=== PATIENT | male | born 1980 | race Caucasian/White ===

== ENCOUNTER 2024-03-22 23:18 | Emergency (ER) | payer OTHER, SELFPAY ==
[2024-03-22 23:22] VITALS: BP 122/74; PULSE 104; RESP 16; TEMP 36.4; O2SAT 95; BMI 32.5
--- OUTSIDE RECORDS SUMMARY | 2024-03-22 23:54 | XMS_ITS | Clinical Summary ---
Author Organization [facility] Address [address] [place] [address] Care Team Providers Care Cook Helper Name Role Phone Rosendo Roland MD Primary Care Provider [phone] Allergies No known active allergies Medications No known medications Social History Tobacco Use Types Packs/Day Years Used Date Smoking Tobacco: Never Smokeless Tobacco: Never Alcohol Use Standard Drinks/Week Comments Yes 0 (1 standard drink = 0.6 oz pur e alcohol) Adolescent Education Answer Date Record ed Getting School Help Needed Not on file 11/24 Sex and Gender Information Value Date Recorded Sex Assigned at Not on file Legal Sex Male 6:46 PM CDT Gender Identity Not on file Sexual Orientation Not on file Last Filed Vital Signs Vital Sign Reading Time Taken Comments Blood Pressure 122/89 09/26/2022 12:57 AM CDT Pulse 66 09/26/2022 12:57 AM CDT Temperature 36.6 C (97.9 F) 09/25/2022 11:21 PM CDT Respiratory Rate 18 09/25/2022 11:21 PM CDT Oxygen Saturation 100% 09/26/2022 12:58 AM CDT Inhaled Oxygen Concentration - - Weight 110.7 kg (244 lb) 09/25/2022 6:58 PM CDT Height - - Body Mass Index - - Plan of Treatment Health Maintenance Due Date Last Done Comments ADVANCE CARE PLANNING 1982 ANNUAL REVIEW OF HM ORDERS 1982 YEARLY PREVENTIVE VISIT 1985 HIV SCREENING 1997 HEPATITIS C SCREENING 2000 HEPATITIS B IMMUNIZATION (1 of 3 - 19+ 3-dose series) 2001 DTAP/TDAP/TD IMMUNIZATION (1 - Tdap) 06/21/2007 LIPID 2022 COVID-19 Vaccine (1 - 2023-2 5 season) 2023 INFLUENZA VACCINE (#1) 2023 PHQ-2 (once per calendar year) 2024 GLUCOSE 09/25/2025 09/25/2022 RSV VACCINE (1 - 1-dose 75+ series) 2057 HPV IMMUNIZATION Aged Out No longer e ligible based on patient's age to complete this topic MENINGITIS IMMUNIZATION Aged Out No l onger eligible based on patient's age to complete this topic Pneumococcal Vaccine: Pediat rics (0 to 5 Years) and At-Risk Patients (6 to 49 Years) Aged Out No longer eligi ble based on patient's age to complete this topic RSV MONOCLONAL ANTIBODY Aged Out No l onger eligible based on patient's age to complete this topic Procedures Procedure Name Priority Date/Time Associated Diagnosis Comments BASIC METABOLIC PANEL STAT 09/25/2022 9:28 PM CDT from Last 3 Months or Most Recently Relevant to Health Maintenance Results * (ABNORMAL) Basic metabolic panel (09/25/2022 9:28 PM CDT) Sodium 137 136 - 145 mmol/L 09/25/2022 9:56 PM CDT [facility] Potassium 4.2 3.4 - 5.3 mmol/L 09/25/2022 9:56 PM CDT [facility] Chloride 100 98 - 107 mmol/L 09/25/2022 9:56 PM CDT [facility] Carbon Dioxide (CO2) 27 22 - 29 mmol/L 09/25/2022 9:56 PM CDT [facility] Anion Gap 10 7 - 15 mmol/L 09/25/2022 9:56 PM CDT [facility] Urea Nitrogen 13.1 6.0 - 20.0 mg/dL 09/25/2022 9:56 PM CDT [facility] Creatinine 1.08 0.67 - 1.17 mg/dL 09/25/2022 9:56 PM CDT [facility] Calcium 9.8 8.6 - 10.0 mg/dL 09/25/2022 9:56 PM CDT [facility] Glucose 107(H) 70 - 99 mg/dL 09/25/2022 9:56 PM CDT [facility] GFR Estimate 89 >60 mL/min/1.7 3m2 09/25/2022 9:56 PM CDT [facility] Blood BLOOD SPECIMEN / Unknown Venipuncture / Unknown 09/25/2022 9:28 PM CDT 09/25/2022 9:34 PM CDT us Andres Sherman MD LAB - BLOOD ORDERABLES Final Result [facility] [address] Lab (1st floor, no room number) [place] [address], [facility] [phone] from Last 3 Months or Most Recently Relevant to Health Maintenance Insurance [facility] Care Teams Cook Helper Relationship Specialty Start Date End Date Rosendo Roland MD [facility] [address] [place] [address] PCP - General 09/25/22
[2024-03-22] MEDS: LIDOCAINE 1%-EPI 1:100,000 20 ML INFILTRATI (23:55)
--- OUTSIDE RECORDS SUMMARY | 2024-03-22 23:55 | XMS_ITS | Encounter Summary ---
Author Organization [facility] Address [address], [place] [address] Care Team Providers Care Installer Technician Name Role Phone Rosendo Roland MD Primary Care Provider [phone] Reason for Visit * Procedure/Equipment (Routine) - Incomplete Specialty Diagnoses / Procedures Referred By Contac t Referred To Contact Diagnoses Chronic pain of left knee Procedures XR Knee Rt 1-2 [place] [address] [place] [address] Referral ID Status Reason Start Date Expiration Date V isits Requested Visits Authorized [id number] Incomplete 02/07/2024 05/08/2025 1 1 Encounter Details Date Type Department Care Team (Latest Contact Info) Description 02/07/2024 12:40 PM BRASS PICKLER Ancillary Procedure Desi [facility] [place] [address] Radiology [address] [place] [phone] [place] [address] [place] [address] Chronic pain of left knee Social History Tobacco Use Types Packs/Day Years Used Date Smoking Tobacco: Never Smokeless Tobacco: Never Alcohol Use Standard Drinks/Week Comments Yes 0 (1 standard drink = 0.6 oz pur e alcohol) PHQ-2 Answer Date Recorded PHQ-2 Score 2 06/18/2023 Sex and Gender Information Value Date Recorded Sex Assigned at Not on file Gender Identity Not on file Sexual Orientation Not on file documented as of this encounter Plan of Treatment Upcoming Encounters Date Type Department Care Team (Late st Contact Info) Description 04/03/2024 12:45 PM BRASS PICKLER Appointment [facility] [address] [facility] [place] [address] [place] [address] [address] [place] [address] documented as of this encounter Procedures Procedure Name Priority Date/Time Associated Diagnosis Comments XR KNEE RT 1-2 VIEWS COMPARISON Routine 02/07/2024 12:43 PM BRASS PICKLER Chronic pain of left knee documented in this encounter Results * XR Knee Lt 3 Views (02/07/2024 12:43 PM BRASS PICKLER) Anatomical Region Laterality Modality Lower Extremity, Knee Digital Ra diography 02/07/2024 12:3 5 PM BRASS PICKLER Narrative 02/07/2024 1:42 PM BRASS PICKLER COMPARISON: None. FINDINGS: No evidence of acute fracture or dislocation. Joint spaces within normal limits. No significant left knee joint effusion. Procedure Note Manny Moulton MD - 02/07/2024 COMPARISON: None. FINDINGS: No evidence of acute fracture or dislocation. Joint spaceswithin normal limits. No significant left knee joint effusion. Morgan AGUIRRE GD * XR Knee Rt 1-2 Views Comparison (02/07/2024 12:43 PM BRASS PICKLER) Anatomical Region Laterality Modality Lower Extremity, Knee Digital Ra diography 02/07/2024 12:3 5 PM BRASS PICKLER Narrative 02/07/2024 1:42 PM BRASS PICKLER COMPARISON: None. FINDINGS: No evidence of acute fracture or dislocation. Joint spaces within normal limits. No significant left knee joint effusion. Procedure Note Manny Moulton MD - 02/07/2024 COMPARISON: None. FINDINGS: No evidence of acute fracture or dislocation. Joint spaceswithin normal limits. No significant left knee joint effusion. Morgan Zapata MD RAD GD documented in this encounter Visit Diagnoses Diagnosis Chronic pain of left knee Pain in joint, lower leg Chronic pain of left knee Pain in joint, lower leg documented in this encounter Care Teams Installer Technician Relationship Specialty [place] [address] [place] [address] PCP - General Family Practice 10/25/21 documented as of this encounter
--- OUTSIDE RECORDS SUMMARY | 2024-03-22 23:55 | XMS_ITS | Encounter Summary ---
Author Organization [facility] Address [address] [place] [address] Care Team Providers Care Axminster Weaver Name Role Phone Rosendo Roland MD Primary Care Provider [phone] Reason for Visit * Procedure/Equipment (Routine) - Incomplete Specialty Diagnoses / Procedures Referred By Contac t Referred To Contact Diagnoses Chronic pain of left knee Procedures MR Knee Lt WO IV Cont MR [place] [address] [place] [address] Referral ID Status Reason Start Date Expiration Date V isits Requested Visits Authorized [id number] Incomplete 02/07/2024 05/08/2025 1 1 Encounter Details Date Type Department Care Team (Latest Contact Info) Description 02/07/2024 4:00 PM FLASK FITTER Ancillary Procedure [facility] [address] [place] [address] [place] [address] [place] [address] Chronic pain of left knee [...] st Contact Info) Description 04/03/2024 12:45 PM FLASK FITTER Appointment [facility] [address] [place] [address] [place] [address] [place] [address] documented as of this encounter Procedures Procedure Name Priority Date/Time Associated Diagnosis Comments MR KNEE LT WO IV CONT Routine 02/07/2024 4:28 PM FLASK FITTER Chronic pain of left knee documented in this encounter Results * MR Knee Lt WO IV Cont (02/07/2024 4:28 PM FLASK FITTER) Anatomical Region Laterality Modality Lower Extremity, Knee, Skeletal, Thigh, Leg, MSK Left Magnetic Resonance 02/07/2024 4:04 PM FLASK FITTER Impressions 02/09/2024 12:57 PM FLASK FITTER 1. No acute internal derangement in the left knee. 2. 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 3. 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 Narrative 02/09/2024 12:57 PM FLASK FITTER COMPARISON: Left knee x-rays 02/07/2024 TECHNIQUE: Routine MRI of the left knee was performed without contrast. FINDINGS: MEDIAL COMPARTMENT: There are no focal cartilage defects. The medial meniscus is normal without evidence of tear. LATERAL COMPARTMENT: Heterogeneity and superficial fissuring of the articular cartilage over the central weightbearing surface of the lateral femoral condyle in the opposing tibial plateau. No focal cartilage defect. The lateral meniscus is normal without evidence of tear. PATELLOFEMORAL JOINT: Diffuse heterogeneity and fissuring of the lateral trochlear cartilage with 5 mm full-thickness chondral defect over the lateral trochlear facet and underlying subchondral marrow edema (series 4 image 19 and series 3 image 11). Heterogeneity of the patellar articular cartilage without focal defect. No significant joint effusion. Dauvs-nh-mpjddoad popliteal fossa cyst measuring 3.5 x 1.0 cm in axial dimension and 5.2 cm in craniocaudal extent. LIGAMENTS AND TENDONS: The anterior and posterior cruciate ligaments, medial collateral ligament, iliotibial band, fibular collateral ligament and biceps femoris tendons are intact. The popliteus muscle and tendons are normal. There is no evidence of injury to the posterolateral corner supporting structures. EXTENSOR MECHANISM: The quadriceps and patellar tendons are normal. The medial retinaculum, medial patellofemoral ligament, and lateral retinaculum are normal. MARROW AND SOFT TISSUES: There is no abnormal signal or evidence of soft tissue mass. Procedure Note Regulo Madison MD - 02/09/2024 COMPARISON: Left knee x-rays 02/07/2024 TECHNIQUE: Routine MRI of the left knee was performed without contrast. FINDINGS: MEDIAL COMPARTMENT: There are no focal cartilage defects. The medialmeniscus is normal without evidence of tear. LATERAL COMPARTMENT: Heterogeneity and superficial fissuring of thearticular cartilage over the central weightbearing surface of the lateralfemoral condyle in the opposing tibial plateau. No focal cartilage defect.The lateral meniscus is normal without evidence of tear. PATELLOFEMORAL JOINT: Diffuse heterogeneity and fissuring of the lateraltrochlear cartilage with 5 mm full-thickness chondral defect over thelateral trochlear facet and underlying subchondral marrow edema (series 4image 19 and series 3 image 11). Heterogeneity of the patellar articularcartilage without focal defect. No significant joint effusion.Vqaqk-sj-lbvizwms popliteal fossa cyst measuring 3.5 x 1.0 cm in axialdimension and 5.2 cm in craniocaudal extent. LIGAMENTS AND TENDONS: The anterior and posterior cruciate ligaments,medial collateral ligament, iliotibial band, fibular collateral ligamentand biceps femoris tendons are intact. The popliteus muscle and tendonsare normal. There is no evidence of injury to the posterolateral cornersupporting structures. EXTENSOR MECHANISM: The quadriceps and patellar tendons are normal. Themedial retinaculum, medial patellofemoral ligament, and lateralretinaculum are normal. MARROW AND SOFT TISSUES: There is no abnormal signal or evidence of softtissue mass. IMPRESSION 1. No acute internal derangement in the left knee. 2. Moderate trochlear chondromalacia with 5 mm full-thickness chondraldefect over the lateral trochlear facet. 3. 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 Morgan Zapata MD RAD MRI documented in this encounter Visit Diagnoses Diagnosis Chronic pain of left knee Pain in joint, lower leg documented in this encounter Care Teams Axminster Weaver Relationship Specialty [place] [address] [place] [address] PCP - General Family Practice 10/25/21 documented as of this encounter
--- OUTSIDE RECORDS SUMMARY | 2024-03-22 23:55 | XMS_ITS | Encounter Summary ---
Author Organization [facility] Address [address] [address] Care Team Providers Care Supply Requirements Officer Name Role Phone Rosendo Roland MD Primary Care Provider [phone] Reason for Visit * Procedure/Equipment (Routine) - Incomplete Specialty Diagnoses / Procedures Referred By Contac t Referred To Contact Diagnoses Chronic pain of left knee Procedures XR Knee Lt 3 [place] [address] [place] [address] Referral ID Status Reason Start Date Expiration Date V isits Requested Visits Authorized [id number] Incomplete 02/07/2024 05/08/2025 1 1 Encounter Details Date Type Department Care Team (Latest Contact Info) Description 02/07/2024 12:35 PM SPECIALIZED LANGUAGE INSTRUCTOR Ancillary Procedure [facility] [place] [address] Radiology [address] [place] [phone] [place] [address] [place] [id number] Chronic pain of left knee Social History [...] st Contact Info) Description 04/03/2024 12:45 PM SPECIALIZED LANGUAGE INSTRUCTOR Appointment [facility] [address] [place] [phone] [place] [address] [place] [address] documented as of this encounter Procedures Procedure Name Priority Date/Time Associated Diagnosis Comments XR KNEE LT 3 VIEWS Routine 02/07/2024 12 :43 PM SPECIALIZED LANGUAGE INSTRUCTOR Chronic pain of left knee documented in this encounter Results * XR Knee Lt 3 Views (02/07/2024 12:43 PM SPECIALIZED LANGUAGE INSTRUCTOR) Anatomical Region Laterality Modality Lower Extremity, Knee Digital Ra diography 02/07/2024 12:3 5 PM SPECIALIZED LANGUAGE INSTRUCTOR Narrative 02/07/2024 1:42 PM SPECIALIZED LANGUAGE INSTRUCTOR COMPARISON: None. FINDINGS: No evidence of acute fracture or dislocation. Joint spaces within normal limits. No significant left knee joint effusion. Procedure Note Manny Moulton MD - 02/07/2024 COMPARISON: None. FINDINGS: No evidence of acute fracture or dislocation. Joint spaceswithin normal limits. No significant left knee joint effusion. Morgan AGUIRRE GD * XR Knee Rt 1-2 Views Comparison (02/07/2024 12:43 PM SPECIALIZED LANGUAGE INSTRUCTOR) Anatomical Region Laterality Modality Lower Extremity, Knee Digital Ra diography 02/07/2024 12:3 5 PM SPECIALIZED LANGUAGE INSTRUCTOR Narrative 02/07/2024 1:42 PM SPECIALIZED LANGUAGE INSTRUCTOR COMPARISON: None. FINDINGS: No evidence of acute [...] leg documented in this encounter Care Teams Supply Requirements Officer Relationship Specialty [place] [address] [place] [address] PCP - General Family Practice 10/25/21 documented as of this encounter
--- OUTSIDE RECORDS SUMMARY | 2024-03-22 23:55 | XMS_ITS | Clinical Summary ---
Author Organization [facility] Address [address], [place] [address] Care Team Providers Care Foreign Language Professor Name Role Phone Rosendo Roland MD Primary Care Provider [phone] Source Comments You are receiving this document as you are listed as the primary care provider,follow-up provider, or the patient has been referred to you for consultation.This is in compliance with the Medicare and[facility] EHR Incentive Program,which states Providers who transition their patient to another setting of careor provider of care or refers their patient to another provider of care shouldprovide summary care record for each transition of care or referral. [facility] Allergies No known active allergies Medications Medication Sig Dispensed Refills Start Date End Date Status vilazodone (VIIBRYD) 20 MG tablet Take 1 Tablet (20 mg) by mouth daily. 10/19/2023 Active Active Problems Problem Noted Date Diagnosed Date Obesity, Class I, BMI 30-34.9 09/07/2022 Encounters Date Type Department Care Team Description 02/19/2024 11:00 AM PLUMBING DRAFTER Office Visit [facility] [address] [place] [phone] Morgan Zapata MD Chronic pain of left knee (Primary Dx); Patellofemoral arthritis 02/18/2024 11:00 AM PLUMBING DRAFTER Office Visit [facility] [address] [facility] [address] [place] [address] Jocelyne Ball MD Sore throat; Pharyngitis, unspecified etiology 02/07/2024 4:00 PM PLUMBING DRAFTER Ancillary Procedure [facility] [place] [address] [place] [address] Morgan Zapata MD Chronic pain of left knee 02/07/2024 12:40 PM PLUMBING DRAFTER Ancillary Procedure Desi Sandoval [place] [address] Rad[facility] [address] [place] [address] Morgan Zapata MD Chronic pain of left knee 02/07/2024 12:35 PM PLUMBING DRAFTER Ancillary Procedure Desi Sandoval [place] [address] Radiology [address] [place] [address] Morgan Zapata MD Chronic pain of left knee 02/07/2024 12:30 PM PLUMBING DRAFTER Office Visit [facility] [address] [place] [address] Morgan Zapata MD Chronic pain of left knee (Primary Dx) from Last 3 Months Immunizations Name Administration Dates Next Due Influenza (Flucelvax), Preserv Free QIV 01/18/20 Moderna COVID-19 12+ 01/17/2023 Family History Medical History Relation Name Comments Diabetes, Type II Mother Relation Name Status Comments Mother Social History Tobacco Use Types Packs/Day Years Used Date Smoking Tobacco: Never Smokeless Tobacco: Never Tobacco Cessation:Counseling Given: Not Answered Alcohol Use Standard Drinks/Week Comments Yes 0 (1 standard drink = 0.6 oz pur e alcohol) PHQ-2 Answer Date Recorded PHQ-2 Score 2 06/18/2023 Sex and Gender Information Value Date Recorded Sex Assigned at Not on file Gender Identity Not on file Sexual Orientation Not on file Last Filed Vital Signs Vital Sign Reading Time Taken Comments Blood Pressure 110/76 02/18/2024 10:40 AM PLUMBING DRAFTER Pulse 89 02/18/2024 10:40 AM PLUMBING DRAFTER Temperature 37.7 C (99.8 F) 02/18/2024 10:40 AM PLUMBING DRAFTER Respiratory Rate 16 02/18/2024 10:40 AM PLUMBING DRAFTER Oxygen Saturation 97% 02/18/2024 10:40 AM PLUMBING DRAFTER Inhaled Oxygen Concentration - - Weight 108.9 kg (240 lb) 02/07/2024 12:30 PM PLUMBING DRAFTER Height 182.9 cm (6') 02/07/2024 12:30 PM PLUMBING DRAFTER Body Mass Index 32.55 02/07/2024 12:30 PM PLUMBING DRAFTER Plan of Treatment Upcoming Encounters Date Type Department Care Team (Late st Contact Info) Description 04/03/2024 12:45 PM PLUMBING DRAFTER Appointment [facility] [address] [place] [address] [place] [address] [place] [address] Health Maintenance Due Date Last Done Comments Diabetes Screening- (based o n age and BMI) 1982 Hep C Screening (Preventive Services) 1982 HIV Screening (Preventive Services) 1998 Adult Preventive Visit 2000 DTaP/Tdap/Td (1 - Tdap) 2001 HepB (1) 2001 Cholesterol 2017 Zoster/Shingles (1 of 2) 2032 COVID-19 Vaccine Completed 12/04/2023, 01/17/2023 Influenza Completed 12/04/2023, 01/17/2023 HPV Vaccine Aged Out No longer eligi ble based on patient's age to complete this topic HepA Aged Out No longer eligi ble based on patient's age to complete this topic Hib Aged Out No longer eligi ble based on patient's age to complete this topic IPV (Polio) Aged Out No longer eligi ble based on patient's age to complete this topic MCV4 Aged Out No longer eligi ble based on patient's age to complete this topic Pneumococcal Aged Out No longer eligi ble based on patient's age to complete this topic Procedures Procedure Name Priority Date/Time Associated Diagnosis Comments STREP GROUP A, MOLECULAR DETECTION STAT 02/18/2024 10:41 AM PLUMBING DRAFTER Sore throat MR KNEE LT WO IV CONT Routine 02/07/2024 4:28 PM PLUMBING DRAFTER Chronic pain of left knee XR KNEE LT 3 VIEWS Routine 02/07/2024 12 :43 PM PLUMBING DRAFTER Chronic pain of left knee XR KNEE RT 1-2 VIEWS COMPARISON Routine 02/07/2024 12:43 PM PLUMBING DRAFTER Chronic pain of left knee from Last 3 Months Results * STREP GROUP A, Molecular Detection-Collect Now in current encounter (02/18/2024 10:41 AM PLUMBING DRAFTER) Group A Strep Not Detected Not Detected 024 11:23 AM PLUMBING DRAFTER [facility] Comment:Methodology: Qualita tive real-time PCR assay Swab (Source Required) THROAT SWAB / Unknown Non-blood Collection / Unknown 02/18/2024 10:41 AM PLUMBING DRAFTER 02/18/2024 10:49 AM PLUMBING DRAFTER Jhon K Rich [facility] [address] [place] [address] * MR Knee Lt WO IV Cont (02/07/2024 4:28 PM PLUMBING DRAFTER) Anatomical Region Laterality Modality Lower Extremity, Knee, Skeletal, Thigh, Leg, MSK Left Magnetic Resonance 02/07/2024 4:04 PM PLUMBING DRAFTER Impressions 02/09/2024 12:57 PM PLUMBING DRAFTER 1. No acute internal derangement in the left knee. 2. 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 3. 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 Narrative 02/09/2024 12:57 PM PLUMBING DRAFTER COMPARISON: Left knee x-rays 02/07/2024 TECHNIQUE: Routine [...] without focal defect. No significant joint effusion. Knwsy-lq-fqstogce popliteal fossa cyst measuring 3.5 x 1.0 [...] articularcartilage without focal defect. No significant joint effusion.Wlzsx-va-ngsvtyzr popliteal fossa cyst measuring 3.5 x 1.0 [...] Desai cyst. Morgan Zapata MD RAD MRI * XR Knee Lt 3 Views (02/07/2024 12:43 PM PLUMBING DRAFTER) Anatomical Region Laterality Modality Lower Extremity, Knee Digital Ra diography 02/07/2024 12:3 5 PM PLUMBING DRAFTER Narrative 02/07/2024 1:42 PM PLUMBING DRAFTER COMPARISON: None. FINDINGS: No evidence of acute fracture or dislocation. Joint spaces within normal limits. No significant left knee joint effusion. Procedure Note Manny Moulton MD - 02/07/2024 COMPARISON: None. FINDINGS: No evidence of acute fracture or dislocation. Joint spaceswithin normal limits. No significant left knee joint effusion. Morgan Zapata MD RAD GD * XR Knee Rt 1-2 Views Comparison (02/07/2024 12:43 PM PLUMBING DRAFTER) Anatomical Region Laterality Modality Lower Extremity, Knee Digital Ra diography 02/07/2024 12:3 5 PM PLUMBING DRAFTER Narrative 02/07/2024 1:42 PM PLUMBING DRAFTER COMPARISON: None. FINDINGS: No evidence of acute fracture or dislocation. Joint spaces within normal limits. No significant left knee joint effusion. Procedure Note Manny Moulton MD - 02/07/2024 COMPARISON: None. FINDINGS: No evidence of acute fracture or dislocation. Joint spaceswithin normal limits. No significant left knee joint effusion. Morgan Zapata MD RAD GD from Last 3 Months Care Teams Foreign Language Professor Relationship Specialty [place] [address] [place] [address] PCP - General Family Practice 10/25/21
--- OUTSIDE RECORDS SUMMARY | 2024-03-22 23:55 | XMS_ITS | Referral Summary ---
Author Organization [facility] Address [address] [place] [address] Care Team Providers Care Twister Tender Name Role Phone Rosendo Roland MD Primary Care Provider [phone] Allergies No known active allergies Medications No [...] Mass Index - - Plan of Treatment Not on file Procedures Procedure Name Priority Date/Time Associated Diagnosis Comments BASIC METABOLIC PANEL STAT 09/25/2022 9:28 PM CDT from Last 3 Months or Most Recently Relevant to Health Maintenance Results * (ABNORMAL) Basic metabolic panel (09/25/2022 9:28 PM CDT) Sodium 137 136 - 145 mmol/L 09/25/2022 9:56 PM CDT LABORATORY Potassium 4.2 3.4 - 5.3 mmol/L 09/25/2022 9:56 PM CDT LABORATORY Chloride 100 98 - 107 mmol/L 09/25/2022 9:56 PM CDT LABORATORY Carbon Dioxide (CO2) 27 22 - 29 mmol/L 09/25/2022 9:56 PM CDT LABORATORY Anion Gap 10 7 - 15 mmol/L 09/25/2022 9:56 PM CDT LABORATORY Urea Nitrogen 13.1 6.0 - 20.0 mg/dL 09/25/2022 9:56 PM CDT LABORATORY Creatinine 1.08 0.67 - 1.17 mg/dL 09/25/2022 9:56 PM CDT LABORATORY Calcium 9.8 8.6 - 10.0 mg/dL 09/25/2022 9:56 PM CDT LABORATORY Glucose 107(H) 70 - 99 mg/dL 09/25/2022 9:56 PM CDT LABORATORY GFR Estimate 89 >60 mL/min/1.7 3m2 09/25/2022 9:56 PM CDT LABORATORY Blood BLOOD SPECIMEN / Unknown Venipuncture / Unknown 09/25/2022 9:28 PM CDT 09/25/2022 9:34 PM CDT us Andres Sherman MD LAB - BLOOD ORDERABLES Final Result LABORATORY [facility] [address] Lab (1st floor, no room number) [place] [address], [facility] [phone] from Last 3 Months or Most Recently Relevant to Health Maintenance Insurance [employer] Care Teams Twister Tender Relationship Specialty Start Date End Date Rosendo Roland MD [facility] [address] [place] [address] PCP - General 09/25/22
--- OUTSIDE RECORDS SUMMARY | 2024-03-22 23:55 | XMS_ITS | Encounter Summary ---
[facility] Organization [facility] Address [address] [place] [address] Care Team Providers Care Claim Attorney Name Role Phone Rosendo Roland MD Primary Care Provider [phone] Reason for Visit * Reason Comments Pharyngitis Encounter Details Date Type Department Care Team (Late st Contact Info) Description 02/18/2024 11:00 AM LOGISTICS CENTER MANAGER Office Visit [place] [facility] [address] [place] [address] Jocelyne Ball MD [address] [place], [place] [id number] Sore throat; Pharyngitis, unspecified etiology Social History Tobacco Use Types Packs/Day Years [...] on file documented as of this encounter Last Filed Vital Signs Vital Sign Reading Time Taken Comments Blood Pressure 110/76 02/18/2024 10:40 AM LOGISTICS CENTER MANAGER Pulse 89 02/18/2024 10:40 AM LOGISTICS CENTER MANAGER Temperature 37.7 C (99.8 F) 02/18/2024 10:40 AM LOGISTICS CENTER MANAGER Respiratory Rate 16 02/18/2024 10:40 AM LOGISTICS CENTER MANAGER Oxygen Saturation 97% 02/18/2024 10:40 AM LOGISTICS CENTER MANAGER Inhaled Oxygen Concentration - - Weight - - Height - - Body Mass Index - - documented in this encounter Patient Instructions * Patient Instructions* Jocelyne Ball MD - 02/18/2024 11:00 AM LOGISTICS CENTER MANAGER The strep test results will be called to you only if it is positive. If you are not already on an antibiotic it will be called to the pharmacy at that time. Push fluids, rest, Warm salt water gargles if that is helpful Lots of cold things to eat and drink Recheck right away if swallowing trouble, high fever, worsening symptoms If you do have strep and start an antibiotic expect some improvement in 24-48 hours Recheck if symptoms do not completely resolve after finishing the antibiotic Take Ibuprofen 600 mg every 6 hours and or tylenol 1000 mg every 6 hours as needed for pain/fever. May alternate so one or the other is every three hours. STICS CENTER MANAGER * Attachments The following attachments cannot be sent through Care Everywhere. * Sore Throat (Kyrgyz) documented in this encounter Progress Notes * Jocelyne Ball MD - 02/18/2024 11:00 AM CST [facility] Nursing Notes: Daphne Nation RN 02/18/24 1040 Signed Mike Culp is a 43 y.o.male presents to the Urgent Care for Pharyngitis Symptoms began: 4 day(s) ago and are are worsening. Pain Scale: 7/10 Fever: believed to be present, temp not taken. Associated symptoms: chills. Fluid intake is decreased. Exposure: no at no exposure . OTC remedies: multi-symptom cold medications. Relief of symptoms: mild. Patient requests an excuse letter for work/school: No Patient: Mike Culp Date of : 1980 (43 y.o.) Subjective Chief Complaint: Chief Complaint Patient presents with Pharyngitis History of Present Illness: Mike Culp is a 43 y.o.male who presents with sore throat for thelast 4 days. Assoc symptoms include: chills and sore throat. Does not have nasal congestion. has not been exposed to strep. has not beenexposed to mono. Objective Physical Exam: Vital Signs: BP 110/76 (BP Location: Right Arm, BP Cuff Size: Large) Pulse 89 Temp 37.7 ??C (99.8 ??F) (Tympanic) Resp 16 SpO2 97% NAD General: Patient does not appear acutely ill. Skin: Mucous membranes are moist. No sign of obvious dehydration. Ears: Canals normal without lesions. TMs: clear Pharynx: moderate erythema Neck: neck one slightly enlarged lymph node right posterior chain Respiratory: Normal respiratory effort. Lungs are clear with good breath sounds. Heart: RR without murmurs, rubs, or gallops. Laboratory Testing: Results for orders placed or performed in visit on 02/18/24 STREP GROUP A, Molecular Detection-Collect Now in current encounter Result Value Ref Range Group A Strep Not Detected Not Detected Interventions: Orders Placed This Encounter STREP GROUP A, Molecular Detection-Collect Now in current encounter Assessment MDM: he does not have nasal congestion so advised he stop using a multisymptom cold med as he does not need the decongestant and it may make the sore throat worse. Strep test pending but likely viral. Impression: 1. Sore throat 2. Pharyngitis, unspecified etiology Plan Patient Discharge Medications & Instructions: Medications Prescribed this Visit None Patient Instructions The strep test results will be called to you only if it is positive. If you are not already on an antibiotic it will be called to the pharmacy at that time. Push fluids, rest, Warm salt water gargles if that is helpful Lots of cold things to eat and drink Recheck right away if swallowing trouble, high fever, worsening symptoms If you do have strep and start an antibiotic expect some improvement in 24-48 hours Recheck if symptoms do not completely resolve after finishing the antibiotic Take Ibuprofen 600 mg every 6 hours and or tylenol 1000 mg every 6 hours as needed for pain/fever. May alternate so one or the other is every three hours. Jocelyne Ball MD STICS CENTER MANAGER documented in this encounter Nursing Notes * Daphne Nation RN - 02/18/2024 11:00 AM CST Mike Culp is a 43 y.o.male presents to the Urgent Care for Pharyngitis Symptoms began: 4 day(s) ago and are are worsening. Pain Scale: 7/10 Fever: believed to be present, temp not taken. Associated symptoms: chills. Fluid intake is decreased. Exposure: no at no exposure . OTC remedies: multi-symptom cold medications. Relief of symptoms: mild. Patient requests an excuse letter for work/school: No STICS CENTER MANAGER documented in this encounter Plan of Treatment Upcoming Encounters Date Type Department Care Team (Late st Contact Info) Description 04/03/2024 12:45 PM LOGISTICS CENTER MANAGER Appointment [facility] [address] [place] [address] [place] [address] [place] [address] documented as of this encounter Procedures Procedure Name Priority Date/Time Associated Diagnosis Comments STREP GROUP A, MOLECULAR DETECTION STAT 02/18/2024 10:41 AM LOGISTICS CENTER MANAGER Sore throat documented in this encounter Results * STREP GROUP A, Molecular Detection-Collect Now in current encounter (02/18/2024 10:41 AM LOGISTICS CENTER MANAGER) Group A Strep Not Detected Not Detected 024 11:23 AM LOGISTICS CENTER MANAGER [facility] Comment:Methodology: Qualita tive real-time PCR assay Swab (Source Required) THROAT SWAB / Unknown Non-blood Collection / Unknown 02/18/2024 10:41 AM LOGISTICS CENTER MANAGER 02/18/2024 10:49 AM LOGISTICS CENTER MANAGER [facility] [address] [place] [address], [facility] documented in this encounter Visit Diagnoses Diagnosis Sore throat Acute pharyngitis Pharyngitis, unspecified etiology documented in this encounter Care Teams Claim Attorney Relationship Specialty [place] [address] [place], [place] [phone] PCP - General Family Practice 10/25/21 documented as of this encounter
--- OUTSIDE RECORDS SUMMARY | 2024-03-22 23:55 | XMS_ITS | Encounter Summary ---
Author Organization [facility] Address [address] [place] [address] Care Team Providers Care Test Man Name Role Phone Rosendo Roland MD Primary Care Provider [phone] Reason for Referral * Procedure/Equipment (Routine) - Incomplete Specialty Diagnoses / Procedures Referred By Contac t Referred To Contact Diagnoses Chronic pain of left knee Procedures MR Knee Lt WO IV Cont [place] [address] [place] [address] Referral ID Status Reason Start Date Expiration Date V isits Requested Visits Authorized [id number] Incomplete 02/07/2024 05/08/2025 1 1 INJECTOR * Procedure/Equipment (Routine) - Incomplete Specialty Diagnoses / Procedures Referred By Contac t Referred To Contact Diagnoses Chronic pain of left knee Procedures XR Knee Rt 1-2 [place] [address] [place] [address] Referral ID Status Reason Start Date Expiration Date V isits Requested Visits Authorized [id number] Incomplete 02/07/2024 05/08/2025 1 1 INJECTOR * Procedure/Equipment (Routine) - Incomplete Specialty Diagnoses / Procedures Referred By Contac t Referred To Contact Diagnoses Chronic pain of left knee Procedures XR Knee Lt 3 [place] [address] [place] [address] Referral ID Status Reason Start Date Expiration Date V isits Requested Visits Authorized [id number] Incomplete 02/07/2024 05/08/2025 1 1 INJECTOR Reason for Visit * Reason Comments CONSULT Left knee chronic DO P: 20 plus years JUAN: originally injured hockey game Encounter Details Date Type Department Care Team (Late st Contact Info) Description 02/07/2024 12:30 PM MOLD INJECTOR Office Visit [facility] [address] [place] [address] [place] [address] [place] [address] Chronic pain of left knee (Primary Dx) Social History Tobacco Use Types Packs/Day Years [...] Sign Reading Time Taken Comments Blood Pressure - - Pulse - - Temperature - - Respiratory Rate - - Oxygen Saturation - - Inhaled Oxygen Concentration - - Weight 108.9 kg (240 lb) 02/07/2024 12:30 PM MOLD INJECTOR Height 182.9 cm (6') 02/07/2024 12:30 PM MOLD INJECTOR Body Mass Index 32.55 02/07/2024 12:30 PM MOLD INJECTOR documented in this encounter Patient Instructions * Patient Instructions* Ester Terry CMA - 02/07/2024 12:30 PM MOLD INJECTOR Thank you for being seen today at [facility] Orthopedics Your Diagnosis is: Left knee pain Your Recommended Treatment is: MRI scan Call below number after MRI complete to set up in person or over the phone clinic visit to review treatment plan and options Morgan Zapata MD Orthopaedic Surgery [phone] Advanced Imaging Scheduling: To schedule advanced imaging including MRI's, CT Scans, Ultrasounds and Fluoroscopic guided injections at a [facility] location please call [phone]. Medication Requests: Prescriptions are not filled on weekends or on weekdays after 3:00 PM. For all medication refills: Request a refill using MyChart or contact your pharmacy. [employer] [address] [place] [address] (Phone) Email: [email or web address] What is Know Your Cost? Know Your Cost is a service for patients and patient/members to call and receive personalized cost information and estimates across our care group. The phone number is (COST) Saturday - Saturday 8 AM to 5 PM Release of Information: Radiology/Imaging Health Information Management [address] [place] [address] [place] [address] (Phone) [phone] (Phone) [employer] INJECTOR documented in this encounter Progress Notes * Morgan Zapata MD - 02/07/2024 12:30 PM CST [facility] Orthopaedic Surgery and Sports Medicine Consultation Note 02/07/2024 NAME: Mike Culp CSN: [id number] Chief Complaint: Left Knee Pain Date of Injury: Over 20 years ago History of Present Illness: Mike Culp is a 43 y.o. male who presents for evaluation of left knee pain. He states he injured his left knee while playing hockey over 20 years ago. Since that time he has had pain and symptoms. The pain is mostly under the patella. He has tried physical therapy in the past. The patient reports he has had several left knee arthroscopic debridement surgeries. His last surgery was 10-15 years ago. He denies previous fracture or tearing of soft tissues. He wonders about possible maltracking of his patella. He was told there were bone spurs present. He notes quadriceps atrophy. He has modified his activities due to pain. He has frequent clicking and popping of his knee. He denies locking. He does develop swelling and Desai's cyst that has not been a problem for awhile.Over the past several months, the pain has increased in severity. He has constant knee pain and aching about the patella even at rest. He is not as active as he used to be. Allergies: Patient has no known allergies. Current Medications: The patient has a current medication list which includes the following prescription(s): bupropion, semaglutide-weight management, and vilazodone. Past Medical History: The patient has no past medical history on file. Past Surgical History: The patient has a past surgical history that includes vasectomy (08/04/22). Family History: The patient's family history includes Diabetes, Type II in his mother. 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 Non-smoker Socially drinks alcohol Physical Exam: General: The patient is alert, oriented in no acute distress. Neuro: Answers questions appropriately. Left Knee: Effusion: Trace Patellar tenderness: Some tenderness over the inferior patella Medial joint line: No tenderness Lateral joint line: No tenderness ROM: Extension: 0 degrees; Flexion: 135 degrees Patellar grind test: Negative Alexandrea: Grade 1A Varus and Valgus stress test, 0 and 30 degrees: Negative Luis Miguel's to varus and valgus load: Negative Imaging: Radiographs of the left knee - 3 views; right knee comparison (02/07/2024): FINDINGS: No evidence of acute fracture or dislocation. Joint spaces within normal limits. No significant left knee joint effusion. Dr. Zapata Impression: X-rays demonstrate mild patellofemoral arthritis with a small amount of spurring. No other fractures or deformities. I ordered and independently reviewed and interpreted the imaging studies above; the results were discussed with the patient. Assessment: ICD-10-CM 1. Chronic pain of left knee M25.562 XR Knee Lt 3 Views G89.29 XR Knee Rt 1-2 Views Comparison MR Knee Lt WO IV Cont CANCELED: MR Knee Lt WO IV Cont 43 y.o. male with acute on chronic left knee pain consistent with patellofemoral chondromalacia, possible meniscus tear. Plan: We will obtain an MRI scan of the left knee to further rule out the cartilage and meniscus problemsgiven the chronicity of symptoms and his lack of response long-term to previous surgeries, physicaltherapy, injections. Follow up with me either in person or over the phone after the MRI has been completed for further review. Scribe Disclosure: I, Moni Cruz, am serving as a scribe to document services personally performed by Morgan Zapata MD at this visit, based upon the provider's statements to me. All documentation has been reviewed by the aforementioned provider prior to being entered into the official medical record. Portions of this medical record were completed by a scribe. UPON MY REVIEW AND AUTHENTICATION BY ELECTRONIC SIGNATURE, this confirms (a) I performed the applicable clinical services, and (b) the record is accurate. Morgan Zapata MD INJECTOR documented in this encounter Plan of Treatment Upcoming Encounters Date Type Department Care Team (Late st Contact Info) Description 04/03/2024 12:45 PM MOLD INJECTOR Appointment [facility]ics [facility] Sports Medicine [address] [place] [phone] [place] [address] [place] [address] documented as of this encounter Results * MR Knee Lt WO IV Cont (02/07/2024 4:28 PM MOLD INJECTOR) Anatomical Region Laterality Modality Lower Extremity, Knee, Skeletal, Thigh, Leg, MSK Left Magnetic Resonance 02/07/2024 4:04 PM MOLD INJECTOR Impressions 02/09/2024 12:57 PM MOLD INJECTOR 1. No acute internal derangement in the left knee. 2. 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 3. 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 Narrative 02/09/2024 12:57 PM MOLD INJECTOR COMPARISON: Left knee x-rays 02/07/2024 TECHNIQUE: Routine [...] without focal defect. No significant joint effusion. [id number]-[id number]-dwrmnwna popliteal fossa cyst measuring 3.5 x 1.0 [...] articularcartilage without focal defect. No significant joint effusion.[id number]-qd-syehfebd popliteal fossa cyst measuring 3.5 x 1.0 [...] Knee Lt 3 Views (02/07/2024 12:43 PM MOLD INJECTOR) Anatomical Region Laterality Modality Lower Extremity, Knee Digital Ra diography 02/07/2024 12:3 5 PM MOLD INJECTOR Narrative 02/07/2024 1:42 PM MOLD INJECTOR COMPARISON: None. FINDINGS: No evidence of acute fracture or dislocation. Joint spaces within normal limits. No significant left knee joint effusion. Procedure Note Manny Moulton MD - 02/07/2024 COMPARISON: None. FINDINGS: No evidence of acute fracture or dislocation. Joint spaceswithin normal limits. No significant left knee joint effusion. Morgan Zapata MD RAD GD * XR Knee Rt 1-2 Views Comparison (02/07/2024 12:43 PM MOLD INJECTOR) Anatomical Region Laterality Modality Lower Extremity, Knee Digital Ra diography 02/07/2024 12:3 5 PM MOLD INJECTOR Narrative 02/07/2024 1:42 PM MOLD INJECTOR COMPARISON: None. FINDINGS: No evidence of acute [...] Visit Diagnoses Diagnosis Chronic pain of left knee- Primary Pain in joint, lower leg Chronic pain of left knee Pain in joint, lower leg Chronic pain of left knee Pain in joint, lower leg Chronic pain of left knee Pain in joint, lower leg documented in this encounter Care Teams Test Man Relationship Specialty [place] [address] [place] [address] PCP - General Family Practice 10/25/21 documented as of this encounter
--- OUTSIDE RECORDS SUMMARY | 2024-03-22 23:55 | XMS_ITS | Encounter Summary ---
Author Organization Formerly [facility] Address [address], [place] [address] Care Team Providers Care Pattern Finisher Name Role Phone Rosendo Roland MD Primary Care Provider [phone] Reason for Referral * (Routine) - New Request Specialty Diagnoses / Procedures Referred By Contac t Referred To Contact Diagnoses Chronic pain of left knee Procedures Triamcinolone Acet Inj Nos: (per 10 mg) [place] [address] [place] [address] Referral ID Status Reason Start Date Expiration Date V isits Requested Visits Authorized [id number] New Request 02/19/2024 05/20/2025 1 1 HICS COORDINATOR * Therapies (Routine) - New Request Specialty Diagnoses / Procedures Referred By Contac t Referred To Contact Diagnoses [place]of[place] [address] [place] [address] Referral ID Status Reason Start Date Expiration Date V isits Requested Visits Authorized [id number] New Request 02/19/2024 02/18/2025 1 1 Scheduling Instructions Your clinician has recommended an appointment with Physical Therapy and Rehabilitation Services. You can quickly schedule your appointment by signing in to your online account at [email or web address] or through the text message you may have received. You can also make an appointment by calling [phone]. We suggest you call your health insurance company about your coverage and benefits for this appointment. Question Answer Appointment Urgency? Non-Urgent Requested Services Evaluate and treat Reason for Visit General Physical Therapy May use saline for irrigation or cleansing Yes dexamethasone use Yes May check glucose per protocol (see policy link below) or if patient has symptoms? Yes Comments Left knee PF arthritis. Work on hip and core strengthening and PF program HICS COORDINATOR Reason for Visit * Reason Comments Follow-up Left knee MRI result s Encounter Details Date Type Department Care Team (Late st Contact Info) Description 02/19/2024 11:00 AM GRAPHICS COORDINATOR Office Visit [facility] [address] [place] [id number] [place] [address] [facility] [place] [address] Chronic pain of left knee (Primary Dx); Patellofemoral arthritis Social History Tobacco Use Types Packs/Day Years [...] on file documented as of this encounter Patient Instructions * Patient Instructions* Morgan Zapata MD - 02/19/2024 11:00 AM GRAPHICS COORDINATOR Thank you for being seen today at [facility] Your Diagnosis is: Left knee patellofemoral arthritis Your Recommended Treatment is: Injection today Start PT to work on hip, core and a patellofemoral program If not improving in 2-3 months, see me in clinic to determine further care INJECTION INSTRUCTIONS: You were provided an injection today. This has a mixture of short term numbing medication (lidocaine) and steroid (triamcinolone). This medication can take 3-5 days to note improvements in your pain and function. I recommend you rest the joint that you had injected for 1-2 days after the injection,to allow the joint to calm down and maximize the effect of the medication. After a 1-2 day period, you may gradually increase the use of the injured joint. You can remove the bandaid, shower and bathe normally after 2-4 hours from the injection. If you do not notice significant relief with modifying your activities, oral anti- inflammatories (ibuprofen or naproxen), and the injection, please follow-up with Dr. Zapata about 6 weeks after the injection for further review of treatment options. Morgan Zapata MD Orthopaedic Surgery [phone] HICS COORDINATOR documented in this encounter Progress Notes * Morgan Zapata MD - 02/19/2024 11:00 AM CST Ortho Follow-Up Note ID: 43-year-old male presents today for follow-up of left knee MRI scan results. Subjective: The patient denies changes since last being seen. He states his knee feels about the same. Continuing to have pain around the kneecap with occasional clicking. Objective: Alert, oriented, no acute distress Nonlabored breathing rest Exam left knee demonstrates motion from 0-135 degrees of flexion. Mild tenderness over the inferiorpatella. Further exam deferred Imaging: MRI scan of the left knee was reviewed today with the patient she demonstrates more diffuse moderate trochlear chondromalacia with more focal 5mm area of full- thickness chondral loss over the lateraltrochlear facet. There is also [id number] chondromalacia of the lateral tibial plateau. No meniscus or ligament tear Assessment: Left knee patellofemoral arthritis Plan: Corticosteroid injection Referral to physical therapy Follow up in 2-3 months if not improving. We discussed the options of hyaluronic acid or PRP injections as the next step. We discussed the option of a knee arthroscopy and chondroplasty if nonsurgical measures fail. We discussed that he may require partial or full knee replacement at some point in the future but he would be ideally greater than 50 with more significant arthritis at that time to consider TKA of PFKA After confirming injection site by patient and surgeon, the left knee was prepped with alcohol and chlorhexidine. 40mg of kenalog and 4cc f 1% lidocaine plain were injected into the left knee vis superolateral portal without complication. The patient tolerated the procedure well. The injection sitewas covered with a bandaid. Morgan Zapata MD HICS COORDINATOR documented in this encounter Plan of Treatment Upcoming Encounters Date Type Department Care Team (Late st Contact Info) Description 04/03/2024 12:45 PM GRAPHICS COORDINATOR [facility] [address] [place] [address] [place] [address] [place] [address] Scheduled Referrals Name Type Priority Associated Diagnoses Orde r Schedule Physical Therapy Referral Routine Patellofemoral arthritis Ordered: 02/19/2024 documented as of this encounter Visit Diagnoses Diagnosis Chronic pain of left knee- Primary Pain in joint, lower leg Patellofemoral arthritis Unspecified arthropathy, lower leg documented in this encounter Care Teams Pattern Finisher Relationship Specialty [place] [address] [place] [address] PCP - General Family Practice 10/25/21 documented as of this encounter
--- NOTE | 2024-03-23 01:55 | ED_ITS ---
HPI - Wound/Laceration General Date Seen: 03/23/24 Chief Complaint: Laceration/Wound Stated Complaint: Needs Stitches in lip, hockey puck Time Seen by Provider: 03/22/24 23:27 Source: patient Mode of arrival: ambulatory Limitations: no limitations History of Present Illness HPI narrative: This very nice gentleman with this plan hockey tonight, and older man's league , when he received a puck on the left side of his lip, this cut it, he has come in to get stitches, there is no loss of consciousness he did not lose any teeth, immunizations are up-to-date. This occurred approximately 60 minutes before being seen. Place: other Patient tetanus UTD: Yes Context: accidental Associated symptoms: none Treatments prior to arrival: cold therapy and bandage Related Data Home Medications ?Medication ?Instructions ?Recorded ?Confirmed No Known Home Medications 03/22/24 03/22/24 Allergies Allergy/AdvReac Type Severity Reaction Status Date / Time No Known Drug Allergies Allergy Verified 03/22/24 23:25 Review of Systems Status of ROS: Reports: 6 or more systems reviewed and unremarkable except as noted in History and below [facility] Social History Smoking Status: Unknown if ever smoked Exam Narrative: Exam Narrative: On examination of his left upper lip, there is approximately a 2 and half to 3 cm laceration that crosses the vermilion border and is gaping, it is not a through and through laceration, the under part is intact all his teeth are intact also, mouth opening normal no other wiliam pharyngeal injury is noted. Neck is supple full range of motion 1% lidocaine with epinephrine was used, this resulted in good anesthesia x4 mL. I cleaned out the wound with some Hibiclens, I was able to approximate the vermilion border, with my for stitch, using 4-0 Prolene. Three more stitches of 4-0 Prolene close the wound nicely. Within his mustache, and lip, I trimmed down the sutures as best as possible. Estimated blood loss less than 4 mL no complications. I did trim some loose non vital tissue. Simple closure Const: Vital Signs, click to edit/add: Vital Signs - 24 hr 03/22/24 23:22 Temperature 97.6 F Pulse Rate [Pulse Oximeter] 104 H Respiratory Rate 16 Blood Pressure [Ri ght Upper Arm] 122/74 Pulse Oximetry 95 Oxygen Delivery Me thod Room Air Documenting provider has reviewed patient's vital signs: yes Course Vital Signs Vital signs: Initial Vital Signs Temperature 97.6 F 03/22/24 23:22 Temperature Source Temporal Artery Scan 03/22/24 23:22 Pulse Rate 104 H 03/22/24 23:22 Respiratory Rate 16 03/22/24 23:22 Blood Pressure 122/74 03/22/24 23:22 Blood Pressure Mean 90 03/22/24 23:22 Blood Pressure Position Sitting 03/22/24 23:22 Pulse Oximetry 95 03/22/24 23:22 Oxygen Delivery Method Room Air 03/22/24 23:22 Vital Signs Temperature 97.6 F 03/22/24 23:22 Pulse Rate 104 H 03/22/24 23:22 Respiratory Rate 16 03/22/24 23:22 Blood Pressure 122/74 03/22/24 23:22 Pulse Oximetry 95 03/22/24 23:22 Oxygen Delivery Method Room Air 03/22/24 23:22 Temperature 97.6 F 03/22/24 23:22 Pulse Rate 104 H 03/22/24 23:22 Respiratory Rate 16 03/22/24 23:22 Blood Pressure 122/74 03/22/24 23:22 Pulse Oximetry 95 03/22/24 23:22 Oxygen Delivery Method Room Air 03/22/24 23:22 Medications Administered Medications: Discontinued Medications Generic Name Dose Route Start Last Admin Trade Name Freq PRN Reason Stop Dose Admin Lidocaine/Epinephrine 20 ml 03/22/24 23:36 03/22/24 23:55 Lidocaine 1%-Epi 1:100,000 INFILTRATI 03/22/24 23:37 20 ml ONCE ONE Administration MDM - Wound/Laceration MDM Narrative Medical decision making narrative: During this evaluation I considered multiple issues including bleeding, wound, chipped teeth, concussion, neck injury Medical Records Attestation: I reviewed the patient's medical records. Discharge Plan Discharge Clinical Impression: Laceration Patient Disposition: Home, Self-Care Condition: Improved Instructions: Laceration (DC) Additional Instructions: Home rest, sutures should come out in 5 days, infection is swelling redness or discharge, or fever he should follow-up with this occurs, I would let her caruso grow out, sutures are super small, but they are blue, and there was a total of 4. Return as needed, or might be easier just to go to the urgent care in [place] , and have it done there Prescriptions: No Action No Known Home Medications Follow Up/Referrals: Provider,Not a Local [Primary Care Provider] - Stand Alone Forms: Nvest Info Instructions
== END 2024-03-23 00:32 | disposition home or self-care (01) ==
PROVIDERS: Emergency Provider Family Medicine
DX: S01.511A Laceration without foreign body of lip, initial encounter (principal); W21.220A Struck by ice hockey puck, initial encounter; Y93.22 Activity, ice hockey
CPT/HCPCS: 12011; 99283